=== PATIENT | male | born 1960 | race Caucasian/White ===

== ENCOUNTER 2022-06-15 10:12 | Emergency (ER) | payer OTHER ==
[2022-06-15] MEDS ORDERED: Fluorescein Opthalmic Strip ONE (10:21)
[2022-06-15] MEDS ORDERED: Proparacaine 0.5% Opth 15 ML BOT ONE (10:21)
[2022-06-15] MEDS ORDERED: Lidocaine 1% w/Epinephrine 1:100K 20 ML VIAL IJ SCH (12:00)
== END 2022-06-15 14:22 ==
LOC: ERS 10:12 → EEVIPCON 10:12 → ERS 14:22
DX: S02.2XXA Fracture of nasal bones, initial encounter for closed fracture (principal); S01.112A Laceration without foreign body of left eyelid and periocular area, initial encounter; I10 Essential (primary) hypertension; E78.00 Pure hypercholesterolemia, unspecified; Y04.0XXA Assault by unarmed brawl or fight, initial encounter
CPT/HCPCS: 12013; 70450; 70486; 72125; 93005